=== PATIENT | male | born 2000 | race Caucasian/White ===

== ENCOUNTER 2021-04-15 18:42 | Emergency (ER) | payer BC ==
[~2021-04-15] VITALS: Ht 183 cm; Wt 77.1 kg
[2021-04-15 19:00] VITALS: BP 123/75
--- NOTE | 2021-04-15 19:46 | Diagnostic Imaging Report ---
INDICATION: Injury to the left thumb. EXAMINATION: Left thumb 04/15/2021 FINDINGS: 3 views of the thumb. There are no radiopaque foreign bodies. No acute fractures or dislocations. Mild soft tissue irregularity is seen along the distal thumb. IMPRESSION: 1. Soft tissue irregularity with no underlying fractures or radiopaque foreign bodies. Dictated by: Dictated on workstation # [id number]
--- NOTE | 2021-04-15 19:54 | ED Integumentary General ---
General Chief Complaint: Laceration Stated Complaint: L HAND THUMB LAC Nursing Triage Note: LEFT PROXIMAL THUMB LACERATION FROM DRILL BIT. Source: patient Exam Limitations: no limitations History of Present Illness Date Seen by Provider: Apr 15, 2021 Time Seen by Provider: 19:53 Initial Comments This is a well appearing 21 yo male who presented to the ER with c/o abdominal pain Allergies and Home Medications Allergies Coded Allergies: No Known Drug Allergies (Unverified , 04/15/21) Past Nsuzgnv-Fpghso-Rhojlo Hx Patient Social History Tobacco Use?: No Substance use?: No Alcohol Use?: Yes Alcohol Frequency: Once in a while Pt feels they are or have been: No Physical Exam Vital Signs Vital Signs - First Documented 04/15/21 19:00 Temp 36.2 Pulse 83 Resp 16 B/P (MAP) 123/75 (91) Pulse Ox 99 O2 Delivery Room Air Capillary Refill : Less Than 3 Seconds Progress/Results/Core Measures Results/Orders My Orders Orders - AAYKA VELASCO APRN Finger(S) (04/15/21 19:12) Vital Signs/I&O 04/15/21 19:00 Temp 36.2 Pulse 83 Resp 16 B/P (MAP) 123/75 (91) Pulse Ox 99 O2 Delivery Room Air Blood Pressure Mean: 91 Departure Impression Primary Impression: Finger laceration Disposition: 01 HOME, SELF-CARE Condition: Improved Departure-Patient Inst. Decision time for Depature: 19:57 Referrals: JUAN MENDOZA MD (PCP/Family) Primary Care Physician Patient Instructions: Laceration Repair With Stitches (DC) Add. Discharge Instructions: Plan: 1. Keep hand elevated above your heart as much as possible over the next 72 hours to reduce swelling. 2. May take Tylenol or Ibuprofen as needed for pain per package. 3. Monitor for signs of infection: redness, purulent drainage, swelling, fever. Return if symptoms develop. 4. Return to ER in 10 days for suture removal. April 25. 5. Return to ER for any new, concerning, or worsening symptoms. Dressing care: Do not soak hand. May wash gently with mild soap and water daily (or if soiled), pat dry, cover with adaptic gauze, then 4x4, and kerlix. You can do this for 2-3 days while drainage present. Then you can leave open to air. Cover if working with soiled material or washing dishes. All discharge instructions reviewed with patient and/or family. Voiced understanding. AYAKA VELASCO [employer] OFFICER Apr 15, 2021 19:54
== END 2021-04-15 20:05 | disposition home or self-care (01) ==
LOC: ER 18:45
DX: S61.012A Laceration without foreign body of left thumb without damage to nail, initial encounter (principal); W29.8XXA Contact with other powered hand tools and household machinery, initial encounter
CPT/HCPCS: 12011; 73140

== ENCOUNTER 2021-04-25 11:43 | Emergency (ER) | payer BC ==
[~2021-04-25] VITALS: Ht 6 cm; Wt 150.0 kg
[2021-04-25 11:51] VITALS: BP 122/64
== END 2021-04-25 11:51 | disposition home or self-care (01) ==
LOC: EDUNIT# 11:43 → ER 11:47
DX: Z48.02 Encounter for removal of sutures (principal)